=== PATIENT | female | born 1985 | race Hispanic/Latino ===

== ENCOUNTER 2022-08-26 18:34 | Emergency (ER) | payer BC | END 2022-08-26 20:36 | disposition home or self-care (01) | LOC: MADERS 18:34 | DX: S00.03XA Contusion of scalp, initial encounter (principal); J06.9 Acute upper respiratory infection, unspecified; W22.8XXA Striking against or struck by other objects, initial encounter; Z20.822 Contact with and (suspected) exposure to COVID-19 | CPT/HCPCS: 70450; U0003; U0005 ==